=== PATIENT | female | born 1995 | race Caucasian/White ===

== ENCOUNTER 2017-10-24 00:15 | Emergency (ER) | payer BC, OTHER ==
[~2017-10-24] VITALS: Ht 170.2 cm; Wt 108.9 kg
[2017-10-24] MEDS ORDERED: KEFLEX500 M1 PO (01:34)
[2017-10-24 02:02] VITALS: BP 129/70
== END 2017-10-24 02:03 | disposition home or self-care (01) ==
LOC: M.ERS 00:15
DX: S91.115A Laceration without foreign body of left lesser toe(s) without damage to nail, initial encounter (principal); L40.9 Psoriasis, unspecified; F17.210 Nicotine dependence, cigarettes, uncomplicated; Z88.0 Allergy status to penicillin; W01.0XXA Fall on same level from slipping, tripping and stumbling without subsequent striking against object, initial encounter; Y93.89 Activity, other specified; Y92.89 Other specified places as the place of occurrence of the external cause; Y99.8 Other external cause status